=== PATIENT | female | born 1985 | race Two or more races ===

== ENCOUNTER 2016-12-10 08:58 | Inpatient (IN) | payer BC, OTHER ==
[2016-12-10] MEDS ORDERED: MINERAL OIL 25 ML BOT ONE (09:13)
[2016-12-10] MEDS ORDERED: LIDOCAINE Viscous 2% 15 ML UDCUP ONE (09:13)
[2016-12-10] MEDS ORDERED: OXYTOCIN 10 UNITS/ML VIAL ONE (09:13)
[2016-12-10] MEDS ORDERED: OXYTOCIN IN NS 500 ML IV ONE (09:13)
[2016-12-10] MEDS ORDERED: LIDOCAINE 1% (PRES FREE) 30 ML VIAL ONE (09:13)
--- NOTE | 2016-12-10 09:25 | PCMAN ---
OB Admission Note - History : 2 Term: 1 : 0 Abortions (S&E): 0 Livin EDC:: 12/14/16 Gestational Age (weeks): 39 Days (#/7): 3 Admit Cervical Dilation:: 1 Admit Cervical Effacement (%):: 100 Admit Station:: 0 Admit Presentaton:: vtx Membrane Status: Intact Labor Onset (Date): 12/10/16 Labor Onset (Time): 02:00 Contractions: Yes Contraction Frequency:: q3 Heart Rate:: 140 Status:: Cat I EFW:: 7.5 Summary of Course:: Patient had an unremarkable course. All PNL were normal. GBS neg - Labs Blood Type: A (+) positive Hct/Hgb:: 10.7/34.4 Rubella Status: Immune GBS Status: Negative - Review of Systems +CTX, +FM, -LOF, -VB - Physical Exam Psych/Mental Status: Mood/Affect Appropriate, Judgment/Insight Intact, Bonding Well Neurological: Grossly Intact, Alert, Oriented x 4 HEENT: Atraumatic, PERRLA, EOMI, Mucous membr. moist/pink Lungs: Clear to Auscultation Bilaterally, Normal Air Movement Cardiovascular: Regular Rate and Rhythm, Normal S1, Normal S2 Abdomen: Normal Bowel Sounds Genitourinary: Normal Female Genitalia Extremities: Full ROM Skin: Normal Color, Warm, Dry, Intact - Problems (1) and not yet delivered Qualifiers: Trimester: third trimester Qualifier Code: (Z34.93) Encounter for supervision of normal , unspecified, third trimester Status: Acute Code: Z34.90Assessment/Plan: Cervix is posterior and not able to reach easily the cervical os. Vertex. GBS neg Expectant management.
--- NOTE | 2016-12-10 10:16 | PCMDEL ---
Delivery Note - Labor 2nd stage (hr/min):: 6 3rd stage (hr/min):: 2 Total (hr/min):: 5 hrs 20 min - Delivery Delivery (Date): 12/10/16 Delivery (Time): 09:57 Infant Gender: Male Presentation: Cephalic Position: OA Umbilical Cord: 3 Vessel Delayed Cord Clamping:: < 1-2 min 1 Minute Total: 9 5 Minute Total: 9 Placenta:: intact, spontaneous EBL:: 150 Perineum:: 2nd degree Suture:: 3-0 vicryl Length ROM:: 6 Comments:: Patient presented in active labor and progressed on her own. She received one dose of IV pain meds before becoming complete. She ruptured spontaneously and pushed 3 times to deliver a viable male in TYSON position. She had a 2nd degree tear that was repaired with 3-0 vicryl. EBL 150. Patient plans on .
[2016-12-10] MEDS ORDERED: LIDOCAINE 1% (PRES FREE) 30 ML VIAL IF ONE (10:20)
[2016-12-10] MEDS ORDERED: LANOLIN 50 APPLIC/7G TUBE TP PRN (10:22)
[2016-12-10] MEDS ORDERED: OXYTOCIN IN NS 167 ML IV PRN (10:22)
[2016-12-10] MEDS ORDERED: BENZOCAINE/MENTHOL 60 APPLIC/BOT TP PRN (10:22)
[2016-12-10] MEDS ORDERED: ACETAMINOPHEN 325 MG TABLET PO PRN (10:22)
[2016-12-10] MEDS ORDERED: DOCUSATE SODIUM 100 MG CAPSULE PO PRN (10:22)
[2016-12-10 11:39] VITALS: BMI 34.3
[2016-12-10 13:15] LABS: HEMATOCRIT 37.2 % (37.0-47.0); HEMOGLOBIN 11.6 gm/l (12.0-16.0); MEAN CELL VOLUME 77.3 fl (81.0-99.0); MEAN CORPUSCULAR HEMOGLOBIN 24.1 pg (27.0-31.0); MEAN CORPUSCULAR HGB CONC 31.2 g/dl (33.0-37.0); RED CELL DISTRIBUTION WIDTH 15.2 % (11.5-14.5)
[2016-12-10] MEDS: IBUPROFEN 800 MG TABLET PO SCH ×2 (23:40→23:41)
[2016-12-11] MEDS: IBUPROFEN 800 MG TABLET PO SCH (04:37)
[2016-12-11 07:51] VITALS: BP 104/55
--- NOTE | 2016-12-11 08:26 | PDOC44 ---
- Subjective Day: 1 Reports Pain Tolerable, Reports , Reports Lochia Light, Reports Tolerating Regular Diet - Objective Temp Pulse Resp BP Pulse Ox 98.0 F 83 18 104/55 12/11/16 07:41 12/11/16 07:41 12/11/16 07:41 12/11/16 07:41 Lab Results 12/11/16 12/10/16 06:25 09:44 WBC 14.3 H RBC 4.81 Hgb 9.0 L D 11.6 L Hct 29.0 L 37.2 Plt Count 319 12/10/16 09:44 MCV 77.3 L MCH 24.1 L MCHC 31.2 L RDW 15.2 H Current Medications Generic Name Dose Route Start Last Admin Trade Name Freq PRN Reason Stop Dose Admin Acetaminophen 325 - 650 mg 12/10/16 10:22 Tylenol PO Q4H PRN Pain (Mild) Benzocaine/Menthol 1 applic 12/10/16 10:22 Dermoplast TP PRN PRN Patient Comfort Docusate Sodium 100 mg 12/10/16 10:22 Colace PO DAILY PRN Comfort Emollient Ointment 1 applic 12/10/16 10:22 12/11/16 02:21 Nur-L-Kcijit TP 1 tube PRN PRN Administration sore nipples OXYTOCIN IN NS 167 mls @ 167 mls/hr 12/10/16 10:22 12/10/16 09:58 Oxytocin-Ns 30 Unit/500 Ml IV 167 mls/hr X1 PRN Administration Bleeding/3rd stage labor Ibuprofen 800 mg 12/10/16 10:30 12/11/16 04:37 Motrin PO Not Given Q6H ASHLEY Sodium Chloride 10 ml 12/10/16 10:22 12/10/16 09:44 Normal Saline 10ml Flush IV 10 ml PRN PRN Administration IV Flush Sodium Chloride 10 ml 12/10/16 17:00 12/11/16 02:10 Normal Saline 10ml Flush IV Not Given Q8HR ASHLEY - Physical Exam Fundus: Firm, Below Umbilicus Abdomen: No Tenderness, No Distention Disposition: Stable, Anticipate DC to Home (Pt desires d/c today. f/u Dr. Wade 4w.)
[2016-12-11] MEDS ORDERED: MEASLES,MUMPS&RUBELLA VACCINE 0.5 ML VIAL SUB-Q V ONE (11:03)
== END 2016-12-11 13:06 | disposition home or self-care (01) | DRG 775 ==
LOC: FBCOUT 08:58 → FBC 08:59 → FBCOUT 09:13
PROVIDERS: ADMIT Obstetrics & Gynecology; ATTEND Obstetrics & Gynecology
PROC: 10E0XZZ Delivery of Products of Conception, External Approach (ICD-10-PCS; principal; 2016-12-10)
PROC: 0KQM0ZZ Repair Perineum Muscle, Open Approach (ICD-10-PCS; 2016-12-10)
DX: O70.1 Second degree perineal laceration during delivery (principal); Z37.0 Single live birth; Z3A.39 39 weeks gestation of pregnancy